=== PATIENT | female | born 2000 | race Caucasian/White ===

== ENCOUNTER 2021-02-06 17:36 | Emergency (ER) | payer OTHER, SELFPAY ==
--- NOTE | ~2021-02-06 | XR_ITS ---
EXAMINATION: XR heel RT min 2V DATE: 02/06/2021 17:59 INDICATION: Right heel injury post fall down stairs 3 days prior TECHNIQUE: Lateral and axial views of the right calcaneus were obtained. COMPARISON: None. FINDINGS: Alignment is normal. No fracture. Joint spaces are normal. Suggestion of subcutaneous edema at the pl ludin aspect of the heel. Soft tissues are otherwise unremarkable. No right ankle joint effusion. IMPRESSION: 1. No osseous abnormality. Reviewed, dictated and finalized at location A. IMPRESSION: 1. No osseous abnormality.
[2021-02-06 17:48] VITALS: BP 113/80; PULSE 94; RESP 18; TEMP 37.2; O2SAT 100
[2021-02-06 17:49] VITALS: BP 113/80; PULSE 94; RESP 18; TEMP 37.2; O2SAT 100
--- NOTE | 2021-02-06 17:54 | ED.LOWEXIN ---
HPI - Extremity Injury (Lower) General Chief Complaint: Extremity Injury, Lower Stated Complaint: Rt Foot Time Seen by Provider: 02/06/21 17:38 Source: patient Mode of arrival: ambulatory Limitations: no limitations History of Present Illness HPI Narrative: 20-year-old female presents to [facility] with complaints of pain to right heel and right Achilles tendon region for the past 3 to 4 days. Patient reports that 3 to 4 days ago, she was taking her dog outside, when her dog yanked on the leash causing her to fall down 2 steps slamming down her right foot. Patient has been applying ice and taking [id number] ibuprofen with minimal relief. Patient also reports minimal swelling to her right heel. Patient denies numbness, tingling, erythema or bruising MD complaint: other (right heel pain ) Onset (ago): day(s) (3) Relieving factors: nothing Exacerbating factors: movement and palpation Other symptoms: none Treatments prior to arrival: cold therapy and NSAIDS Related Data Home Medications Medication Instructions Recorded Confirmed buspirone 15 mg BID 02/06/21 02/06/21 fluoxetine 20 mg DAILY 02/06/21 02/06/21 Allergies Allergy/AdvReac Type Severity Reaction Status Date / Time clindamycin Allergy Verified 06/17/12 17:55 Review of Systems Constitutional: Constitutional: Denies chills, Denies fatigue, Denies fever(s) and Denies weakness ENT: Denies dysphagia, Denies dizziness and Denies sore throat Cardiovascular: Cardiovascular: Denies chest pain, Denies rapid heart rate, Denies radiating jaw, neck or arm pain and Denies slow heart rate Respiratory: Respiratory: Denies chest congestion, Denies cough, Denies dyspnea and Denies wheezing Gastrointestinal: Gastrointestinal: Denies abdominal pain, Denies diarrhea, Denies nausea and Denies vomiting Musculoskeletal: Comments: right heel pain Integumentary/Breasts: Skin/Breast: Denies rash Neurologic: Denies dizziness and Denies syncope [facility] Social History Social History (Updated 02/06/21 @ 17:56 by Brenda Barajas APRN) Smoking status: Never smoker Additional living arrangements comments: Patient is adopted Gender identity (if verbalized by the patient): Female Comments At time of signature, I agree with nursing past medical, surgical, social and family history. There is no relevant family history pertinent to the presenting complaint. Exam Const: General: no acute distress and alert Nutritional Appearance: well nourished Orientation/consciousness: patient oriented x3 Neck: Neck: normal visual inspection Resp: Effort & Inspection: normal respiratory effort, not labored and not tachypneic Auscultation: clear to auscultation bilaterally Cardio: Rate: regular rate, not bradycardic and not tachycardic Rhythm: regular rhythm Heart sounds: no murmurs Skin: General skin exam: normal color Rashes: no rashes Wounds: no wounds Neuro: General: patient oriented x3, moves all extremities and no meningeal signs Speech: normal speech Extrem: General: no clubbing, cyanosis or edema Other: Moderate amount of pain noted to right heel upon palpation. There is mild swelling noted to right heel. There is no bruising, erythema or open wounds noted. There is full range of motion to right Achilles tendon with no difficulty. (-) Cintron test of right Achilles tendon Psych: Appearance: grossly normal Mental Status: mental status grossly normal Affect: normal affect Attitude: cooperative Thought content: Yes Normal thought content present Course Vital Signs Vital signs: Vital Signs Temperature 37.2 C 02/06/21 17:48 Pulse Rate 94 02/06/21 17:48 Respiratory Rate 18 02/06/21 17:48 Blood Pressure 113/80 02/06/21 17:48 Pulse Oximetry 100 02/06/21 17:48 Temperature 37.2 C 02/06/21 17:49 Pulse Rate 94 02/06/21 17:49 Respiratory Rate 18 02/06/21 17:49 Blood Pressure 113/80 02/06/21 17:49 Pulse Oximetry 100 02/06/21
== END 2021-02-06 18:41 | disposition home or self-care (01) ==
PROVIDERS: Emergency Provider Nurse Practitioner Family
DX: M79.671 Pain in right foot (principal); F41.9 Anxiety disorder, unspecified; F32.9 Major depressive disorder, single episode, unspecified
CPT/HCPCS: 73650; 99213; G0463

== ENCOUNTER 2021-03-07 17:00 | Emergency (ER) | payer OTHER, SELFPAY ==
--- NOTE | ~2021-03-07 | XR_ITS ---
XR toe 4th RT min 2V 03/07/2021 17:22 INDICATION: Right fourth toe pain after trauma PROCEDURE: 4 views right fourth toe COMPARISON: No prior studies for comparison. FINDINGS: There is a possible nondisplaced fracture base of the right fourth distal phalanx.. The sof t tissues appear within normal limits. No foreign bodies are identified. IMPRESSION: 1: Possible nondisplaced fracture base of the right fourth distal phalanx. Correlate for point tender ness. Reviewed, dictated and finalized at location A. IMPRESSION: 1: Possible nondisplaced fracture base of the right fourth distal phalanx. Esperanza elate for point tenderness.
[2021-03-07 17:10] VITALS: BP 114/81; PULSE 98; RESP 16; TEMP 37.1; O2SAT 99
--- NOTE | 2021-03-07 17:37 | ED.LOWEXIN ---
HPI - Extremity Injury (Lower) General Chief Complaint: Extremity Injury, Lower Stated Complaint: Rt foot pain Time Seen by Provider: 03/07/21 17:31 Source: patient and RN notes reviewed Mode of arrival: ambulatory Limitations: no limitations History of Present Illness HPI Narrative: Patient presents today complaining of right fourth toe injury. States she stubbed her toe yesterday on a dumbbell. Denies numbness or tingling in the toe. Currently rates her pain 2/10 and has been applying ice. Pain increases with weightbearing. Patient is on her feet many hours per day as she works at [employer] BURGER complaint: other (Toe injury) Related Data Home Medications Medication Instructions Recorded Confirmed buspirone 15 mg BID 02/06/21 03/07/21 fluoxetine 20 mg DAILY 02/06/21 03/07/21 multivitamin 1 tablet PO DAILY 02/15/21 Allergies Allergy/AdvReac Type Severity Reaction Status Date / Time cephalexin [From Keflex] Allergy Unknown rash Verified 02/15/21 08:16 clindamycin Allergy Unknown Unknown Verified 02/14/21 13:48 Review of Systems Review of Systems: Narrative: CONSTITUTIONAL: Denies body aches, fever, chills, or sweats. EYES: Denies visual changes, redness, or discharge. ENT: Denies rhinorrhea, congestion, sore throat, or otalgia. CARDIOVASCULAR: Denies chest pain, palpitations, or edema. RESPIRATORY: Denies cough or dyspnea. GASTROINTESTINAL: Denies abdominal pain, nausea, vomiting, or diarrhea. GENITOURINARY: Denies dysuria or hematuria. SKIN: Denies rash, itching, or wounds. MUSCULOSKELETAL: Denies back pain, joint pain, or myalgia.+ Right fourth toe injury NEUROLOGIC: Denies headache, numbness, tingling, or weakness. PSYCH: Denies depression or anxiety. [facility] Past Medical History Medical History Anemia Anxiety Asthma Contusion of right heel Depression Psoriasis Surgical History Surgical History History of removal of cyst History of wisdom tooth extraction Social History Social History Smoking status: Never smoker Alcohol intake: current Alcohol use details: 1 per month Substance use: current Substance use type: marijuana Additional living arrangements comments: Patient is adopted Gender identity (if verbalized by the patient): Female Comments At time of signature, I have reviewed and agree with nursing past medical, surgical, social and family history unless otherwise noted. Please see nursing chart for further information. There is no relevant family history pertinent to the presenting complaint Exam Narrative: Exam Narrative: GENERAL: Well-appearing, well-nourished, and in no acute distress. HEAD: Normocephalic, atraumatic. EYES: EOMI. No redness or drainage. Conjunctivae normal. ENT: Mucous membranes pink and moist. NECK: Normal AROM. CHEST: No respiratory distress. EXTREMITIES: Right fourth toe: Ecchymosis along the medial aspect of the entire toe. Tenderness along the medial portion of the toe. Distal sensation intact. Capillary refill normal. Pedal pulse normal. Motion limited due to pain. SKIN: Warm, dry, no rash. Capillary refill normal. Normal skin turgor. NEURO: No focal deficits. Alert and oriented x3. Gait steady. PSYCH: Normal affect. No signs of depression or anxiety. Course Vital Signs Vital signs: Vital Signs Temperature 98.8 F 03/07/21 17:10 Pulse Rate 98 03/07/21 17:10 Respiratory Rate 16 03/07/21 17:10 Blood Pressure 114/81 03/07/21 17:10 Pulse Oximetry 99 03/07/21 17:10 Temperature 98.8 F 03/07/21 17:10 Pulse Rate 98 03/07/21 17:10 Respiratory Rate 16 03/07/21 17:10 Blood Pressure 114/81 03/07/21 17:10 Pulse Oximetry 99 03/07/21 17:10 Reviewed. Pt has been instructed to follow up with her PCP regarding her elevated
== END 2021-03-07 17:46 | disposition home or self-care (01) ==
PROVIDERS: Emergency Provider Nurse Practitioner
DX: S92.424A Nondisplaced fracture of distal phalanx of right great toe, initial encounter for closed fracture (principal); W22.09XA Striking against other stationary object, initial encounter; F41.9 Anxiety disorder, unspecified; F32.9 Major depressive disorder, single episode, unspecified
CPT/HCPCS: 73660; 99214; G0463

== ENCOUNTER 2021-04-16 10:10 | Emergency (ER) | payer OTHER, SELFPAY ==
[2021-04-16 10:15] VITALS: BP 129/83; PULSE 101; RESP 17; TEMP 37; O2SAT 100
--- NOTE | 2021-04-16 10:18 | ED.FEMALEGU ---
HPI - Female Genitourinary General Chief complaint: Urogenital-Female Stated complaint: Yeast Infection Time Seen by Provider: 04/16/21 10:18 Source: patient and RN notes reviewed Mode of arrival: ambulatory Limitations: no limitations History of Present Illness HPI Narrative: 20 yo female presents to the [facility] with C/O I think I have a Yeast infection. Patient reports white discharge, itching with redness to the vaginal area for a couple of days. Has tried OTC itch cream and it is not getting better. Denies fevers. No chest pain or abdominal pain. No urinary symptoms. No nausea vomiting or diarrhea. Denies any chances of an STD. Related Data Home Medications Medication Instructions Recorded Confirmed fluoxetine 20 mg DAILY 02/06/21 04/16/21 multivitamin 1 tablet PO DAILY 02/15/21 04/16/21 Allergies Allergy/AdvReac Type Severity Reaction Status Date / Time cephalexin [From Keflex] Allergy Mild rash Verified 04/16/21 10:19 clindamycin Allergy Mild Rash Verified 04/16/21 10:19 Review of Systems Review of Systems: All systems reviewed & are unremarkable except as noted in HPI and below Constitutional: Constitutional: Reports no additional constitutional complaints, Denies chills and Denies fatigue Eyes: Eyes: Reports no additional eye complaints and Denies change in vision ENT: Reports system reviewed and no additional complaints, except as documented Cardiovascular: Cardiovascular: Reports no additional cardiovascular complaints and Denies chest pain Respiratory: Respiratory: Reports no additional respiratory complaints, Denies cough and Denies dyspnea Gastrointestinal: Gastrointestinal: Reports no additional gastrointestinal complaints, Denies abdominal pain, Denies diarrhea, Denies nausea and Denies vomiting Genitourinary: Genitourinary: Reports as per HPI, Denies genital lesions, Denies dysuria and Reports vaginal discharge Musculoskeletal: Musculoskeletal: Reports no additional musculoskeletal complaints Integumentary/Breasts: Skin/Breast: Reports system reviewed and no additional complaints, except as docu Neurologic: Reports system reviewed and no additional complaints, except as documented Psychiatric: Psychiatric: Reports no additional psychiatric complaints Allergic/Immunologic: Allergic/Immunologic: Reports no additional allergic/immunologic complaints PMF Past Medical History Medical History Anemia Anxiety Asthma Contusion of right heel Depression Psoriasis Toe fracture, right Surgical History Surgical History History of removal of cyst History of wisdom tooth extraction Social History Social History Smoking status: Current every day smoker Tobacco type: smokeless tobacco Smokeless tobacco user: other Alcohol intake: current Alcohol use details: 1 per month Substance use: current Substance use type: marijuana Additional living arrangements comments: Patient is adopted Gender identity (if verbalized by the patient): Female Comments At the time of my signature, I reviewed and agree with the nursing past medical, surgical, social, and family history. There is no relevant family history pertinent to the patient complaint. Exam Const: General: healthy appearing, no acute distress and alert Nutritional Appearance: well nourished Orientation/consciousness: patient oriented x3 Limitations: no limitations HENMT: Head: normal to inspection Eyes: Conjunctivae: conjunctivae normal Pupils: Equal, round and reactive pupils present Neck: Neck: normal visual inspection, no lymphadenopathy and no meningeal signs Chest: Chest palpation & inspection: normal inspection of the chest and abnormal inspection of the chest Resp: Effort & Inspection: normal respiratory effort and no use of accessory muscles Auscultati
== END 2021-04-16 11:00 | disposition home or self-care (01) ==
PROVIDERS: Emergency Provider Nurse Practitioner
DX: N76.0 Acute vaginitis (principal); F17.200 Nicotine dependence, unspecified, uncomplicated; F41.9 Anxiety disorder, unspecified; J45.909 Unspecified asthma, uncomplicated; F32.9 Major depressive disorder, single episode, unspecified; L40.9 Psoriasis, unspecified
CPT/HCPCS: 81003; 81025; 87070; 87086; 99213; G0463

== ENCOUNTER 2021-07-03 16:04 | Emergency (ER) | payer OTHER, MEDICAID, SELFPAY ==
[2021-07-03] VITALS (20 sets, daily range): BP systolic 108–137; BP diastolic 72–95; PULSE 68–120; RESP 5–22; TEMP 36.6; O2SAT 95–100
--- NOTE | 2021-07-03 16:38 | PC.NURSE ---
Poison control contacted at [phone]
--- NOTE | 2021-07-03 16:56 | ECG_ITS ---
Measurements Intervals [place] Rate: 108 P: 56 MA: 148 QRS: 72 QRSD: 77 T: 42 QT: 352 QTc: 472 Interpretive Statements SINUS TACHYCARDIA BASELINE ARTIFACT- II, V3-V6 ABNORMAL ECG Electronically Signed On 07-03-2021 20:20:06 CDT by Kevin Rai D.O.
--- NOTE | 2021-07-03 17:10 | ED.GENADULT ---
HPI - General Adult General Chief complaint: Overdose Stated complaint: OD/SI Time Seen by Provider: 07/03/21 16:06 Source: patient and EMS Mode of arrival: EMS Limitations: no limitations History of Present Illness HPI narrative: Patient brought in by EMS with reports of Tylenol overdose. Patient EKG and her boyfriend were arguing today and she took 6000mg of tylenol because she did not want to hurt anymore . Nursing staff inform me that the tylenol she took may have been tylenol PM. Pt is unable to tell me what time she took the tylenol but nursing staff inform me that EMS stated the incident occurred around 1530. Pt states that she and her boyfriend live together and they fight frequently. Pt is here in company of her adoptive mother. She states that pt calls her about once every 1.5 weeks due to arguments she has with her boyfriend. Pt states that they did break up today. She has a hx of suicidal ideations in past but states that she has never taken action on these thoughts. She denies any hallucinations. Physically, she endorses nausea and has had several episodes of vomiting since she ingested the tylenol. She denies abdominal pain per se. She states she feels like she is going to pass out . LMP about three weeks ago. She is not on contraception. Related Data Home Medications Medication Instructions Recorded Confirmed fluoxetine 20 mg DAILY 02/06/21 04/16/21 multivitamin 1 tablet PO DAILY 02/15/21 04/16/21 Allergies Allergy/AdvReac Type Severity Reaction Status Date / Time cephalexin [From Keflex] Allergy Mild rash Verified 07/03/21 16:19 clindamycin Allergy Mild Rash Verified 07/03/21 16:19 Review of Systems Review of Systems: CONSTITUTIONAL: Denies fever, chills, or sweats. EYES: Denies visual changes, redness, or discharge. ENT: Denies rhinorrhea, congestion, sore throat, or otalgia. CARDIOVASCULAR: Denies chest pain, palpitations, or edema. RESPIRATORY: Denies cough or dyspnea. GASTROINTESTINAL: Reports nausea and vomiting. Denies abdominal pain or diarrhea. GENITOURINARY: Reports urinary frequency. Denies dysuria or hematuria. SKIN: Denies rash or itching. MUSCULOSKELETAL: Denies back pain, joint pain, or myalgia. NEUROLOGIC: Reports sensation that she is going to pass out . Denies headache PSYCHIATRIC: Denies anxiety or depression. [facility] Past Medical History Medical History Anemia Anxiety Asthma Contusion of right heel Depression Psoriasis Toe fracture, right Surgical History Surgical History History of removal of cyst History of wisdom tooth extraction Social History Social History Smoking status: Current every day smoker Tobacco type: smokeless tobacco Smokeless tobacco user: other Alcohol intake: current Alcohol use details: 1 per month Substance use: current Substance use type: marijuana Additional living arrangements comments: Patient is adopted Gender identity (if verbalized by the patient): Female Exam Narrative: GENERAL: Well-appearing, well-nourished, and in no acute distress. HEAD: Normocephalic, atraumatic. EYES: PERRLA and EOMI. ENT: Nares clear, no rhinorrhea or epistaxis. Mucous membranes moist. Oropharynx without tonsillar hypertrophy exudate or other lesions. Bilateral TMs pearly tanner nonbulging NECK: Supple. No adenopathy or masses. No carotid bruits or JVD CHEST: Clear to auscultation. No respiratory distress. No wheezes rales or rhonchi HEART: Regular rate and rhythm. No murmur heard. Normal peripheral pulses. ABDOMEN: Soft, nondistended, normal active bowel sounds. There is diffuse mild abdominal tenderness without rebound or guarding. EXTREMITIES: Normal range of motion. No edema. SKIN: Warm, dry, no rash. NEURO: No focal deficits. Alert and oriented
[2021-07-03 17:15] LABS: Add Urine Microscopic? YES; Appearance Urine Cloudy (Clear); Bacteria Urine 3+ /hpf; Bilirubin Urine Negative (Negative); Blood Urine Negative (Negative); Color Urine Straw (Yellow); Glucose Urine UA Negative (Negative); Ketones Urine Trace mg/dL (Negative); Leukocyte Esterase Ur 3+ LEU/UL (Negative); Mucus Urine Rare /lpf; Nitrate Urine Negative (Negative); Protein Urine Negative (Negative); RBC Urine 0-2 /hpf (0-2); Specific Grav Ur 1.008 (1.001-1.035); Squamous Epithelial Cell Urine Many /hpf (Few); Urobilinogen Urine Negative mg/dL (<2.0)
[2021-07-03 17:38] LABS: Amphetamine Screen Urine Negative (Negative); Barbiturate Screen Urine Negative (Negative); Benzodiazepines Screen Urine Negative (Negative); Cannabinoid Screen Urine Negative (Negative); Cocaine Screen Urine Negative (Negative); Methadone Screen Urine Negative (Negative); Opiate Screen Urine Negative (Negative); Phencyclidine Screen Urine Negative (Negative)
[2021-07-03 17:49] LABS: Basophils Percent Auto 0.3 % (0.2-1.2); Eosinophils Percent Auto 0.1 % (0-4.4); Hematocrit 41.1 % (37.0-47.0); Hemoglobin 13.7 g/dL (12.0-15.0); Immature Granulocyte Absolute 0.02 K/mm3 (0.00-0.031); Immature Granulocyte Percent A 0.3 % (0-0.5); Lymphocytes Absolute Auto 1.29 K/mm3 (0.9-3.2); Lymphocytes Percent Auto 19.2 % (18.3-44.2); Mean Corpuscular HGB Conc 33.3 g/dl (32-36); Mean Corpuscular Hemoglobin 26.6 pg (26-34); Mean Corpuscular Volume 79.7 fl (80-100); Mean Platelet Volume 10.7 fl (7.4-10.4); Monocytes Absolute Auto 0.6 K/mm3 (0.1-0.6); Monocytes Percent Auto 8.8 % (2.6-8.5); Neutrophils Absolute Auto 4.8 K/mm3 (1.3-6.7); Neutrophils Percent Auto 71.3 % (45.5-73.1); Platelet Count Result 223 k/mm3 (150-375); Red Blood Count 5.16 M/mm3 (4.2-5.4); Red Cell Distribution Width 12.2 % (11.5-14.5); White Blood Count 6.7 K/mm3 (4.5-10.0)
[2021-07-03 17:53] LABS: INR 1.1; Partial Thromboplastin Time 29.1 SECONDS (22.3-36.8)
[2021-07-03] MEDS: SODIUM CHLORIDE 0.9% IV 1,000 ML 999 ML IV CONT ×2 (18:01→21:06)
[2021-07-03] MEDS: ONDANSETRON INJ 4 MG/2 ML VIAL IV PUSH ×2 (18:01→21:06)
[2021-07-03 18:31] LABS: Acetaminophen 99 ug/mL (10-30); Ethanol < 10 mg/dL (<10); Salicylate < 1.0 mg/dL (2-20)
[2021-07-03 19:29] LABS: Alanine Aminotransferase 13 U/L (4-35); Albumin Level 4.4 g/dL (3.5-5.1); Alkaline Phosphatase 48 U/L (38-126); Anion Gap 10 mmol/L (8-16); Aspartate Amino Transferase 17 U/L (14-36); Bilirubin,Total 0.8 mg/dL (0.2-1.3); Blood Urea Nitrogen 7 mg/dL (7-17); Calcium 9.4 mg/dL (8.4-10.2); Carbon Dioxide 20 mmol/L (22-30); Chloride 113 mmol/L (98-107); Estimated CRCL calculation 100 ml/min; Estimated Glomerular Filt Rate > 60; Glucose 94 mg/dL (65-110); Potassium 3.8 mmol/L (3.4-5.0); Sodium 143 mmol/L (137-145)
[2021-07-03 19:50] LABS: Acetaminophen 62 ug/mL (10-30); Salicylate < 1.0 mg/dL (2-20)
--- NOTE | 2021-07-03 20:10 | PC.NURSE ---
Received follow up phone call from [place] poison control. Patient's labs are subtoxic and do not need any further action. Patient's case will be closed.
--- NOTE | 2021-07-03 23:09 | PC.NURSE ---
assumed care of patient denies any suicidal thoughts calm cooperative waiting dispo
== END 2021-07-03 23:49 | disposition home or self-care (01) ==
PROVIDERS: Emergency Provider Nurse Practitioner
DX: T39.1X2A Poisoning by 4-Aminophenol derivatives, intentional self-harm, initial encounter (principal); F32.A Depression, unspecified; N30.00 Acute cystitis without hematuria; F41.9 Anxiety disorder, unspecified; Z86.2 Personal history of diseases of the blood and blood-forming organs and certain disorders involving the immune mechanism; F17.220 Nicotine dependence, chewing tobacco, uncomplicated; R00.0 Tachycardia, unspecified
CPT/HCPCS: 36415; 80053; 80307; 81001; 81025; 85025; 85610; 85730; 87086; 87088; 93005; 96361; 96374; 96376; 99284; J2405; J7030

== ENCOUNTER 2022-01-12 16:06 | Emergency (ER) | payer OTHER, MEDICAID, SELFPAY ==
[2022-01-12 16:18] VITALS: BP 115/61; PULSE 128; RESP 18; TEMP 38.1; O2SAT 100
--- NOTE | 2022-01-12 16:42 | ED.URI ---
HPI - URI/Sore Throat General Chief Complaint: Upper Respiratory Infection Stated Complaint: bodyache,chest pain, + covid test Time Seen by Provider: 01/12/22 16:42 Source: patient Mode of arrival: ambulatory Limitations: no limitations History of Present Illness HPI Narrative: 21-year-old female presents with complaint of fever, fatigue, body aches, dry cough, headache since last night. Reports that she took a home COVID test after work today and it was positive. Took Advil prior to arrival. States she has not been able to drink because she feels so fatigued. Reports generalized feeling of weakness and shortness of breath when ambulatory. No shortness of breath or chest pain at rest. States her boss told her that she could come to work with COVID, she is here for quarantine guidance. All systems reviewed and negative except as noted above. Related Data Allergies Allergy/AdvReac Type Severity Reaction Status Date / Time cephalexin [From Keflex] Allergy Mild rash Verified 01/12/22 16:25 clindamycin Allergy Mild Rash Verified 01/12/22 16:25 Review of Systems Review of Systems: CONSTITUTIONAL: Reports fever, chills, or sweats. EYES: Denies visual changes, redness, or discharge. ENT: Denies rhinorrhea, congestion, sore throat, or otalgia. CARDIOVASCULAR: Denies chest pain, palpitations, or edema. RESPIRATORY: Reports cough and dyspnea with exertion. GASTROINTESTINAL: Denies abdominal pain, nausea, vomiting, or diarrhea. GENITOURINARY: Denies dysuria or hematuria. SKIN: Denies rash or itching. MUSCULOSKELETAL: Denies back pain, joint pain, or myalgia. NEUROLOGIC: Reports headache. Denies numbness, or weakness. PSYCHIATRIC: Denies anxiety or depression. All other systems reviewed are negative, except as documented in HPI. [facility] Past Medical History Medical History Anemia Anxiety Asthma Contusion of right heel Depression Psoriasis Toe fracture, right Surgical History Surgical History History of removal of cyst History of wisdom tooth extraction Social History Social History Smoking status: Current every day smoker Tobacco type: smokeless tobacco Smokeless tobacco user: other Alcohol intake: current Alcohol use details: 1 per month Substance use: current Substance use type: marijuana Additional living arrangements comments: Patient is adopted Gender identity (if verbalized by the patient): Female Comments At time of signature, agree with nursing past medical, surgical, social and family history. There is no relevant family history pertinent to the presenting complaint. Exam Narrative: GENERAL: This is a well-nourished, well-developed patient. Patient is ill-appearing but no distress. HEAD: normocephalic, atraumatic. EYES: PERRL. Sclera clear/white. Vision is grossly intact. EARS: External ears normal, auditory canals clear and without drainage, TMs normal without perforation. Hearing grossly intact. NOSE: External nose normal with no obvious nasal discharge, nares without redness, no rhinorrhea. THROAT: Mucous membranes moist, posterior pharynx clear. NECK: Neck supple, non-tender without lymphadenopathy, masses or thyromegaly. CARDIOVASCULAR: Regular rate and rhythm without murmurs, gallops, or rubs. RESPIRATORY: Clear to auscultation. Breath sounds equal bilaterally. No wheezes, rales, or rhonchi. SKIN: warm, Dry, intact with no suspicious lesions or rash, good texture and turgor. NEURO: awake, alert, and oriented to person, place and time. There were no obvious focal neurologic abnormalities. EXTREMITIES: Normal range of motion to all extremities. Course Course Level of Care: Express Care Visit Vital Signs Vital signs: Vital Signs Temperature 38.1 C H 01/12/22 16:18 Pulse Rate 128 H 01/12/22 16:1
== END 2022-01-12 16:43 | disposition home or self-care (01) ==
PROVIDERS: Emergency Provider Nurse Practitioner Family
DX: U07.1 COVID-19 (principal); J45.909 Unspecified asthma, uncomplicated; F17.290 Nicotine dependence, other tobacco product, uncomplicated; F12.90 Cannabis use, unspecified, uncomplicated
CPT/HCPCS: 99213; G0463

== ENCOUNTER 2023-01-24 13:34 | Emergency (ER) | payer SELFPAY ==
--- NOTE | 2023-01-24 13:44 | ED.FEMALEGU ---
HPI - Female Genitourinary General Chief complaint: Urogenital-Female Stated complaint: Female Urogenital Time Seen by Provider: 01/24/23 14:17 Source: patient and RN notes reviewed Mode of arrival: ambulatory Limitations: no limitations History of Present Illness HPI Narrative: 22 year old female presents with concern for appy.. Reports her menses are usually very regular, she was 4 days late, she started bleeding yesterday. She reports she is having heavier bleeding with clotting. She reports some uterine cramping. She denies dysuria, frequency, urgency, back pain, abdominal pain, denies fever, chills, sweats. She reports she does not use control but has not had a positive test. MD elicited complaint: vaginal bleeding Related Data Home Medications Medication Instructions Recorded Confirmed No Home Medications 01/24/23 01/24/23 Allergies Allergy/AdvReac Type Severity Reaction Status Date / Time cephalexin [From Keflex] Allergy Mild rash Verified 01/24/23 14:01 clindamycin Allergy Mild Rash Verified 01/24/23 14:01 Review of Systems Review of Systems: CONSTITUTIONAL: Denies malaise, chills, sweats, or fever. CARDIOVASCULAR: Denies chest pain, palpitations, or edema. RESPIRATORY: Denies cough or dyspnea. GASTROINTESTINAL: Denies abdominal pain, nausea, vomiting, diarrhea GENITOURINARY: Denies dysuria, frequency, urgency, suprapubic pressure. Denies flank pain or hematuria. Reports heavy menses SKIN: Denies rash or itching. MUSCULOSKELETAL: Denies back pain or myalgia. All systems reviewed & are unremarkable except as noted in HPI and below PMFSH Past Medical History Medical History Anemia Anxiety Asthma Contusion of right heel Depression Psoriasis Toe fracture, right Surgical History Surgical History History of removal of cyst History of wisdom tooth extraction Social History Social History Smoking status: Current every day smoker Tobacco type: smokeless tobacco Smokeless tobacco user: other Alcohol intake: current Alcohol use details: 1 per month Substance use: current Substance use type: marijuana Additional living arrangements comments: Patient is adopted Gender identity (if verbalized by the patient): Female Comments At time of signature, agree with nursing past medical, surgical, social and family history. There is no relevant family history pertinent to the presenting complaint Exam Narrative: GENERAL: Well-appearing, well-nourished, and in no acute distress. HEAD: Normocephalic. EYES: PERRLA, conjunctivae clear. NECK: Supple. No lymphadenopathy CHEST: Clear to auscultation. No respiratory distress. HEART: Regular rate and rhythm. ABDOMEN: Soft, nontender upon palpation, nondistended, normal active bowel sounds, no palpable or pulsatile masses, no guarding. No CVA tenderness SKIN: Warm, dry, no rash. NEURO: Alert and oriented x3. PSYCH: Normal mood and affect Course Course Emergency Course: Advised patient and if she is soaking more than to menstrual pads an hour she should go to the emergency room for further evaluation. 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 Anticipatory guidance given. Patient agrees to follow-up as directed and is aware of reasons to seek care at the emergency department. Portions of this record may have been created with voice recognition software Level of Care: Express Care Visit Vital Signs Vital signs: Reviewed. MDM - Female Genitourinary MDM Narrative Medical decision making narrative: Exam findings and UA
[2023-01-24 13:48] VITALS: BP 110/69; PULSE 86; RESP 18; TEMP 36.8; O2SAT 100
== END 2023-01-24 14:20 | disposition home or self-care (01) ==
PROVIDERS: Emergency Provider Nurse Practitioner
DX: N92.0 Excessive and frequent menstruation with regular cycle (principal); F17.290 Nicotine dependence, other tobacco product, uncomplicated; J45.909 Unspecified asthma, uncomplicated
CPT/HCPCS: 81003; 81025; 99212; G0463

== ENCOUNTER 2023-03-03 19:13 | Emergency (ER) | payer SELFPAY ==
--- NOTE | 2023-03-03 19:22 | ED.SKABFB ---
HPI - Skin/Abscess/Foreign Bdy General Chief complaint: Skin/Abscess/Foreign Body Stated complaint: Swollen Rt Hand Due to Cat Scratch Time Seen by Provider: 03/03/23 19:25 Source: patient Mode of arrival: ambulatory Limitations: no limitations History of Present Illness HPI narrative: Nancy is a 22-year-old female patient presenting to the clinic today with complaints right hand swelling and redness due to a cat bite. She reports her dog and cat were fighting yesterday and she broke them up in the cat bit her on the right hand. She has redness and swelling around the bite with puncture friedman. No draining. Denies any fever or chills. Tetanus is not up-to-date. Related Data Allergies Allergy/AdvReac Type Severity Reaction Status Date / Time cephalexin [From Keflex] AdvReac Mild rash Verified 03/03/23 19:18 clindamycin AdvReac Mild Rash Verified 03/03/23 19:18 Review of Systems Review of Systems: Pertinent positives per HPI. Patient denies any fever, chills, rash, headache, visual changes, dizziness, cough, runny nose, sore throat, shortness of breath, chest pain, palpitations, nausea, vomiting, diarrhea, constipation, abdominal pain, or any urinary issues. PMFSH Past Medical History Medical History Anemia Anxiety Asthma Contusion of right heel Depression Psoriasis Toe fracture, right Surgical History Surgical History History of removal of cyst History of wisdom tooth extraction Social History Social History Smoking status: Current every day smoker Tobacco type: smokeless tobacco Smokeless tobacco user: other Alcohol intake: current Alcohol use details: 1 per month Substance use: current Substance use type: marijuana Additional living arrangements comments: Patient is adopted Gender identity (if verbalized by the patient): Female Comments At the time of my signature, I reviewed and agree with the nursing past medical, surgical, social, and family history. There is no relevant family history pertinent to the patient complaint. Exam Narrative: General: Well-developed, well nourished, in no apparent distress Head: Normocephalic, atraumatic. Cardio: Regular rate and rhythm, s1 and s2 normal, no murmur appreciated. Resp: Clear to auscultation bilaterally, no rhonchi, rales, wheezing or rubs. Integumentary: [place], warm, and dry, 2 closed puncture wounds to the right lateral hand with redness and swelling. Pain with flexion and extension of the 4th and 5th fingers Course Course Emergency Course: Portions of this record may have been created with voice recognition software. Level of Care: Express Care Visit Vital Signs Vital signs: Vital signs reviewed MDM - Skin/Abscess/Foreign Bdy MDM Narrative Medical decision making narrative: At the time of visit patient is resting comfortably on the exam table. Patient has a infected cat bite to the right hand. Will send in prescription for Augmentin to cover pasteurella and give her a tetanus shot in the clinic today. Supportive measures were discussed with the patient she voiced understanding of discharge instructions and agrees to treatment plan. Discharge Plan Discharge Clinical Impression: Cat bite of right hand with infection Qualifiers: Encounter type: initial encounter Qualified Code(s): S61.451A - Open bite of right hand, initial encounter Patient Disposition: Home, Self-Care Condition: Stable Instructions: Antibiotic Form, Animal Bite (ED) Additional Instructions: Tdap injection given in the clinic today. Take Augmentin as prescribed May apply ice to the affected area May take Tylenol/Motrin as needed for pain/ swelling Keep wound clean and dry Watch for signs and symptoms of worsening infection-high fever not controlled
[2023-03-03 19:24] VITALS: BP 112/71; PULSE 94; RESP 16; TEMP 37.1; O2SAT 100
[2023-03-03] MEDS: TETANUS,DIPHTHERIA,AC PERTUSSIS ADULT (0.5 ML) BOOSTRIX IM (19:35)
== END 2023-03-03 19:38 | disposition home or self-care (01) ==
PROVIDERS: Emergency Provider Nurse Practitioner Family
DX: S61.431A Puncture wound without foreign body of right hand, initial encounter (principal); L08.9 Local infection of the skin and subcutaneous tissue, unspecified; W55.01XA Bitten by cat, initial encounter; Z23 Encounter for immunization; J45.909 Unspecified asthma, uncomplicated; L40.9 Psoriasis, unspecified; F17.290 Nicotine dependence, other tobacco product, uncomplicated; F12.90 Cannabis use, unspecified, uncomplicated
CPT/HCPCS: 90471; 90715; 99213; G0463

== ENCOUNTER 2023-11-23 12:14 | Emergency (ER) | payer BC, SELFPAY ==
[2023-11-23 12:32] VITALS: BP 117/74; PULSE 106; RESP 16; TEMP 37.6; O2SAT 100
--- NOTE | 2023-11-23 12:47 | ED.URI ---
HPI - URI/Sore Throat General Chief Complaint: Upper Respiratory Infection Stated Complaint: sore throat,cold symptoms Time Seen by Provider: 11/23/23 12:42 Source: patient and RN notes reviewed Mode of arrival: ambulatory Limitations: no limitations History of Present Illness HPI Narrative: Patient presents today complaining of sore throat, headache, right ear pain, body aches, chills and sweats. Symptoms started yesterday, but are worse today. Currently rates her sore throat 03/11. She tried a dose of NyQuil last night without relief but has taken no medication for her symptoms today. Related Data Home Medications Medication Instructions Recorded Confirmed No Home Medications 11/23/23 11/23/23 Allergies Allergy/AdvReac Type Severity Reaction Status Date / Time cephalexin [From Keflex] AdvReac Mild rash Verified 11/23/23 12:30 clindamycin AdvReac Mild Rash Verified 11/23/23 12:30 Review of Systems Review of Systems: CONSTITUTIONAL: Denies fever. + chills, sweats, body aches EYES: Denies visual changes, redness, or discharge. ENT: Denies rhinorrhea, congestion. + sore throat, right ear pain CARDIOVASCULAR: Denies chest pain, palpitations, or edema. RESPIRATORY: Denies cough or dyspnea. GASTROINTESTINAL: Denies abdominal pain, nausea, vomiting, or diarrhea. GENITOURINARY: Denies dysuria or hematuria. SKIN: Denies rash, itching, or wounds. MUSCULOSKELETAL: Denies back pain, joint pain, or myalgia. NEUROLOGIC: Denies numbness, tingling, or weakness.+ headache PSYCH: Denies depression or anxiety. [facility] Past Medical History Medical History Anemia Anxiety Asthma Contusion of right heel Depression Psoriasis Toe fracture, right Surgical History Surgical History History of removal of cyst History of wisdom tooth extraction Social History Social History Smoking status: Current every day smoker Tobacco type: smokeless tobacco Smokeless tobacco user: other Alcohol intake: current Alcohol use details: 1 per month Substance use: current Substance use type: marijuana Additional living arrangements comments: Patient is adopted Gender identity (if verbalized by the patient): Female Comments At time of signature, I have reviewed and agree with nursing past medical, surgical, social and family history unless otherwise noted. Please see nursing chart for further information. There is no relevant family history pertinent to the presenting complaint Exam Narrative: GENERAL: Mildly ill-appearing, well-nourished, and in no acute distress. HEAD: Normocephalic, atraumatic. EYES: EOMI. No redness or drainage. Conjunctivae normal. ENT: Mucous membranes pink and moist. Nares clear. No rhinorrhea. TMs normal bilaterally. Throat erythematous and mildly edematous. No exudate. Uvula midline. NECK: Normal AROM. Supple. Bilateral anterior cervical chain lymphadenopathy. CHEST: No respiratory distress. Clear to auscultation. HEART: Regular rate and rhythm. No murmur appreciated. EXTREMITIES: Normal range of motion. No edema. SKIN: Warm, dry, no rash. Capillary refill normal. Normal skin turgor. NEURO: No focal deficits. Alert and oriented x3. Gait steady. PSYCH: Normal affect. No signs of depression or anxiety. Course Course Level of Care: Express Care Visit Vital Signs Vital signs: Vital Signs Temperature 99.7 F H 11/23/23 12:32 Pulse Rate 106 H 11/23/23 12:32 Respiratory Rate 16 11/23/23 12:32 Blood Pressure 117/74 11/23/23 12:32 Pulse Oximetry 100 11/23/23 12:32 Oxygen Delivery Room Air 11/23/23 12:32 Temperature 99.7 F H 11/23/23 12:32 Pulse Rate 106 H 11/23/23 12:32 Respiratory Rate 16 11/23/23 12:32 Blood Pressure 117/74 11/23/23 12:32 Pulse Oximetry 100
== END 2023-11-23 13:04 | disposition home or self-care (01) ==
PROVIDERS: Emergency Provider Nurse Practitioner
DX: J06.9 Acute upper respiratory infection, unspecified (principal); Z20.822 Contact with and (suspected) exposure to COVID-19; F17.200 Nicotine dependence, unspecified, uncomplicated; J45.909 Unspecified asthma, uncomplicated; L40.9 Psoriasis, unspecified
CPT/HCPCS: 87081; 87426; 87804; 87880; 99213; G0463

== ENCOUNTER 2023-12-20 08:49 | Outpatient (CLI) | payer BC, SELFPAY ==
[2023-12-20 09:41] LABS: Hematocrit 36.7 % (37.0-47.0); Hemoglobin 10.7 g/dL (12.0-15.0)
== END 2023-12-20 08:50 | disposition home or self-care (01) ==
LOC: ANHSURGERY 08:52
PROVIDERS: Visit Provider Obstetrics & Gynecology
DX: D64.9 Anemia, unspecified (principal); Z01.818 Encounter for other preprocedural examination
CPT/HCPCS: 36415; 85014; 85018

== ENCOUNTER 2023-12-27 01:00 | Day surgery (SDC) | payer BC, SELFPAY ==
--- NOTE | 2023-12-16 17:01 | PC.NURSE ---
Report to the Outpatient Waiting Room, entrance under the green pavilion located off [facility], at time on date . Planned Procedure Time: . Time changes happen often and if your time is changed the preop area will call you the afternoon before. - You and your visitor will be asked to self-screen and do not enter if you have any COVID symptoms. - A mask is optional within the hospital at this time. Patients may have clear liquids (water, carbonated beverages, clear teas, apple juice) until 3 hours prior to surgery with a maximum of 20 ounces. - No food from midnight until time of surgery - Infants may have breast milk until 4 hours before surgery, infant formula 6 hours prior to surgery. - Children will be allowed to drink immediately following surgery. If applicable, please bring a bottle or sippy cup to assist with drinking. Juice, water, soda, and popsicles are readily available. For infants on formula, please bring formula the day of surgery. Pacifiers are allowed. Take the following medications with a SIP of water the morning of surgery: DO NOT STOP ANY OF YOUR OTHER PRESCRIPTION MEDICATIONS PRIOR TO SURGERY ?EXCEPT THE FOLLOWING Medications to discontinue per physician Date to take last dose Please no make-up, nail latvian, hairspray, perfume, deodorant, or body powder the day of surgery. No jewelry (including any body piercings) or valuables the day of surgery, leave them at home. Please take a shower or bath the night before, or the morning of, surgery with an antibacterial soap. Wear comfortable, loose fitting clothing. Children are encouraged to wear pajamas. - Jewelry must be removed prior to entering the operating room. Rings and piercings that are not removed may be cut off. - The hospital will not accept responsibility for valuables. - Please leave all valuables, including medications, at home the day of surgery. If you are going home after surgery, a licensed cattle driver must drive you home. - NO public transportation without another adult if you receive anesthesia. - We recommend that an adult stay with you for 24 hours following discharge. - We also recommend that you do not drive, make important decision, drink alcoholic beverages, or take any drugs that were not prescribed by your health care provider for at least 24 hours after your discharge time. For Pediatric surgeries, we recommend two adults accompany the child home. Follow any additional instructions given to you from your surgeon. If you or anyone in your household have experienced Covid symptoms in the past week, please notify your surgeon or the nurse liaison at the phone number below for possible testing. Telephone instructions given to and asked if any additional questions and then verbalized understanding. Patient advised to call surgeon office or pre surgery nurse liaison [phone] if any additional questions.
[2023-12-16 17:17] VITALS: BMI 21.1
--- NOTE | 2023-12-16 17:21 | PC.NURSE ---
Addendum entered by Linda Marshall RN 12/17/23 12:57: PLEASE HOLD YOUR IRON TABLET FOR 3 DAYS PRIOR TO SURGERY, LAST DOSE 12/23. Original Note: Report to the Outpatient Waiting Room, entrance under the green pavilion located off [facility], at time ____1:30pm___ on date ___[id number]____. Planned Procedure Time: ____3:30pm____. Time changes happen often and if your time is changed the preop area will call you the afternoon before. - You and your visitor will be asked to self-screen and do not enter if you have any COVID symptoms. - A mask is optional within the hospital at this time. Patients may have clear liquids (water, carbonated beverages, clear teas, apple juice) until 3 hours prior to surgery with a maximum of 20 ounces. Stop your clear liquids at 12:30pm the day of surgery. - No food from midnight until time of surgery - Take the following medications with a SIP of water the morning of surgery: NONE DO NOT STOP ANY OF YOUR OTHER PRESCRIPTION MEDICATIONS PRIOR TO SURGERY ?EXCEPT THE FOLLOWING Medications to discontinue per physician : Take your last iron tablet on 12-26-2023. Hold your iron tablet the morning of surgery. Please no make-up, nail sami, hairspray, perfume, deodorant, or body powder the day of surgery. No jewelry (including any body piercings) or valuables the day of surgery, leave them at home. Please take a shower or bath the night before, or the morning of, surgery with an antibacterial soap. Wear comfortable, loose fitting clothing. - Jewelry must be removed prior to entering the operating room. Rings and piercings that are not removed may be cut off. - The hospital will not accept responsibility for valuables. - Please leave all valuables, including medications, at home the day of surgery. If you are going home after surgery, a licensed limo driver must drive you home. - NO public transportation without another adult if you receive anesthesia. - We recommend that an adult stay with you for 24 hours following discharge. - We also recommend that you do not drive, make important decision, drink alcoholic beverages, or take any drugs that were not prescribed by your health care provider for at least 24 hours after your discharge time. Follow any additional instructions given to you from your surgeon. If you or anyone in your household have experienced Covid symptoms in the past week, please notify your surgeon or the nurse liaison at the phone number below for possible testing. Telephone instructions given to ___Patient: Shelly Esparza, and asked if any additional questions and then verbalized understanding. Patient advised to call surgeon office or pre surgery nurse liaison, Linda, if any additional questions.
--- NOTE | 2023-12-25 07:43 | PM.IMHP ---
H&P: HPI History of Present Illness Date/Time: 12/25/23 07:43 Chief Complaint: Irregular bleeding with the large thickened endometrium Narrative: 23-year-old female admitted for hysteroscopy dilatation curettage and probable polypectomy. She has had heavy irregular bleeding. She underwent ultrasound in the large thickened area that appears to be a polyp was seen. She is admitted for hysteroscopy dilatation curettage as well as polypectomy or removal of this mass. Risks and benefits reviewed in great detail. She received the [employer] handouts entitled hysteroscopy as well as dilatation and curettage respectively. She had all questions answered. She asked to proceed PMF Past Medical History Medical History Anemia Anxiety Asthma Contusion of right heel Depression Psoriasis Toe fracture, right Surgical History Surgical History History of removal of cyst History of wisdom tooth extraction Social History Social History Years smoked: 2 Smoking status: Former smoker Tobacco type: cigarettes Smokeless tobacco user: other Alcohol intake: current Drinks per week: 2 Alcohol use details: 1 per month Substance use: former Substance use type: marijuana Living arrangements: with friend(s) Additional living arrangements comments: Patient is adopted Gender identity (if verbalized by the patient): Female Spiritual care concerns: No Meds Home Medications and Allergies Home Medications Medication Instructions Recorded Confirmed Type Iron (ferrous sulfate) 325 mg BYMOUTH DAILY 12/16/23 12/16/23 History Allergies Allergy/AdvReac Type Severity Reaction Status Date / Time cephalexin [From Keflex] AdvReac Mild rash Verified 12/16/23 17:25 clindamycin AdvReac Mild Rash Verified 12/16/23 17:25 Exam Const: General: cooperative, healthy appearing, comfortable and average body habitus Orientation/consciousness: oriented to person, oriented to place and oriented to time HENMT: Head: normal to inspection Resp: Effort & Inspection: normal respiratory effort Cardio: Rate: regular rate Rhythm: regular rhythm Heart sounds: S1 normal heart sound present and S2 normal heart sound present GI: Inspection: normal to inspection : External Female Exam: normal external appearance Speculum Exam - Vagina: normal appearance of the vagina Speculum Exam - Cervix: normal appearance of the cervix Bimanual exam- vagina & uterus: enlarged Bimanual Exam- Adnexa, other: normal adnexae Assessment and Plan Assessment and plan (1) Excessive bleeding: Code(s): R58 - Hemorrhage, not elsewhere classified Status: Acute Plan Hysteroscopy/dilatation curettage/polypectomy
--- NOTE | 2023-12-27 06:30 | WPDHPUPDATE1 ---
History and Physical Update Update Date/Time: 12/27/23 06:30 History and Physical has been reviewed, including an updated exam of the patient. There are NO changes in the patient's condition. Risks, benefits, and alternatives have been discussed and questions answered. Patient agrees to proceed with procedure.
[2023-12-27 13:28] VITALS: BMI 20.9
[2023-12-27 13:30] VITALS: BP 125/77; PULSE 103; RESP 14; TEMP 37.3; O2SAT 100
[2023-12-27] MEDS: LACTATED RINGERS 1,000 ML 30 ML IV CONT (13:50)
[2023-12-27] MEDS: ACETAMINOPHEN 500 MG TABLET 1000 MG PO (13:53)
--- NOTE | 2023-12-27 14:22 | P.PNAN_ITS ---
Anes - Initial Pre Proc Eval Procedure: Operation Date: 12/27/23 15:30 Proposed Procedures p Hysteroscopy Dilation and Curettage, Polypectomy - Nikita Pruitt MD Date/Time: 12/27/23 14:22 Surgeon: Nikita Pruitt MD Pre Op Diagnosis: Irg Bleeding, Uterine Polyp Patient Data Age: 23 Gender: F Height: 1.65 m Weight: 56.95 kg Last Vital Signs Temp 99.2 F 12/27/23 13:30 Pulse 103 H 12/27/23 13:30 Resp 14 12/27/23 13:30 BP 125/77 12/27/23 13:30 Pulse Ox 100 12/27/23 13:30 O2 Del Method Room Air 12/27/23 13:30 Allergies Allergy/AdvReac Type Severity Reaction Status Date / Time cephalexin [From Keflex] AdvReac Mild rash Verified 12/27/23 13:58 clindamycin AdvReac Mild Rash Verified 12/27/23 13:58 Home Medications Medication Instructions Recorded Confirmed Type Iron (ferrous sulfate) 325 mg BYMOUTH DAILY 12/16/23 12/27/23 History hydrocodone 5 mg-acetaminophen 325 1 tablet PO Q6H PRN pain #14 tabs 12/27/23 Rx mg tablet Patient hx anesthesia problems: none Family hx anesthesia problems: none Results Review: All pre-operative results and documents have been reviewed as part of the pre- operative evaluation. [facility] Past Medical History Medical History Anemia Anxiety Asthma Contusion of right heel Depression Psoriasis Toe fracture, right Surgical History Surgical History History of removal of cyst History of wisdom tooth extraction Social History Social History Years smoked: 2 Smoking status: Former smoker Tobacco type: cigarettes Smokeless tobacco user: other Alcohol intake: current Drinks per week: 2 Alcohol use details: 1 per month Substance use: former Substance use type: marijuana Living arrangements: with friend(s) Additional living arrangements comments: Patient is adopted Gender identity (if verbalized by the patient): Female Spiritual care concerns: No Anes - Eval Final PreProcedure Day of Procedure 12/27/23 14:22 Patient weight: normal Heart: regular rate and rhythm Lungs: clear to auscultation Airway: Mallampati scale class II Neurological: alert and oriented Last oral intake: >/= 8 hours ASA classification: II Emergent: no Anesthetic plan: proceed Anesthesia type and monitoring: general GIVS and standard monitoring Results Review: All pre-operative results and documents have been reviewed as part of the pre- operative evaluation. Informed Consent: The patient's anesthetic plan and its attendant risks and benefits were discussed with the patient/family/POA. Questions were solicited and answers provided to the satisfaction of the patient/family/POA.
[2023-12-27] MEDS: LIDOCAINE HCL 1% LOCAL INJ 20 ML VIAL 10 ML INFILTRATE (14:40)
[2023-12-27 14:49] VITALS: BP 114/70; PULSE 79; RESP 14; O2SAT 100
--- NOTE | 2023-12-27 14:49 | W.PM.PROC2 ---
Procedure Note - Detailed Date of Procedure 12/27/23 Pre-op Diagnosis Irg Bleeding, Uterine Polyp Post-op Diagnosis Other (Irregular bleeding and thickened endometrium) Procedure Performed hysteroscopy/dilatation curettage Surgeon Nikita Pruitt MD Anesthesia MAC and Local Indications 23-year-old female with thickened endometrium on imaging and heavy bleeding Findings thick irregular endometrial tissue with a clot seen. Each fallopian tube os could be seen and appeared within limits. Description of Procedure The patient was prepped draped in the normal sterile fashion placed in the dorsal lithotomy position. Under excellent IV sedation weighted speculum placed in posterior fornix anterior lip of the cervix grasped with single-tooth tenaculum. 2.5cc 1% xylocaine anesthesia placed at 2, 4, 8, 10:00 a.m. of the cervix. The uterus sounded to 7cm. Serial dilatation with fragmented dilators performed followed by passage of the 5mm visualizing history hysteroscope. Normal saline was used as visualizing medium. Thick irregular endometrial tissue was seen with clot. Each fallopian tube os could be seen. The uterus was then scraped over the entire 360? until good grating sound was heard. The instruments withdrawn and the patient went to recovery in satisfactory condition. All sponge, needle, instrument counts were correct. Were immediate complications Estimated Blood Loss 5 Drains No Packing No Pathology Yes Complications No immediate complications Condition Stable Disposition PACU
[2023-12-27] MEDS: oxyCODONE HCL (*CRX) 5 MG TAB IR PO (15:11)
[2023-12-27 15:15] VITALS: BP 121/84; PULSE 79
[2023-12-27 15:45] VITALS: BP 116/75; PULSE 75
== END 2023-12-27 15:50 | disposition home or self-care (01) ==
PROVIDERS: Visit Provider Obstetrics & Gynecology
PROC: 0U5B8ZZ Destruction of Endometrium, Via Natural or Artificial Opening Endoscopic (ICD-10-PCS; CPT 58563; principal; 2023-12-27 15:30)
DX: N93.9 Abnormal uterine and vaginal bleeding, unspecified (principal); D64.9 Anemia, unspecified; Z87.891 Personal history of nicotine dependence
CPT/HCPCS: 58558; 88305; A9270; J2250; J2405; J2704; J3010; J7120